=== PATIENT | female | born 1980 | race Hispanic/Latino ===

== ENCOUNTER 2017-11-21 07:34 | Day surgery (SDC) | payer OTHER ==
--- NOTE | 2017-11-20 16:29 | RAD REPORT ---
EXAM DESCRIPTION: RAD - Chest Pa And Lat (2 Views) - 11/20/2017 4:13 pm CLINICAL HISTORY: Preop chest, pending hernia repair COMPARISON: September 05 TECHNIQUE: PA and lateral views of the chest were obtained. FINDINGS: The lungs are no peripheral mass, consolidation or failure finding. Interstitial markings are prominent but not clearly different from the comparison 15 months earlier. Heart size is normal and central vasculature is within normal limits. No pleural effusion or pneumothorax seen. No acut e bony finding noted. No aortic abnormality. IMPRESSION: No acute cardiopulmonary process. No significant interval change.
[2017-11-20 17:18] LABS: Absolute Lymphocytes (CBC) 2.4 K/uL (0.7-4.9); Absolute Monocytes 0.5 K/uL (0.1-1.3); Absolute Neutrophil 5.8 K/uL (1.8-8.0); Basophils % 0.4 % (0-1.3); Eosinophils % 1.4 % (0-4.4); Hematocrit 40.4 % (36.0-45.0); MCH 30.9 pg (27.0-35.0); MCV 90.7 fL (80-100); MPV 9.5 fL (7.6-11.3); Monocytes % 5.8 % (3.3-12.3); RBC Red Blood Cell Count 4.46 M/uL (3.86-4.86)
[2017-11-20 17:32] LABS: BUN Blood Urea Nitrogen 11 mg/dL (6-20); Bicarbonate 25 mEq/L (21-31); Glucose Level 94 mg/dL (65-120); Potassium 4.1 mEq/L (3.6-5.0); Sodium Level 136 mEq/L (135-145)
--- NOTE | 2017-11-21 06:34 | EKG ---
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
--- OUTSIDE RECORDS SUMMARY | 2017-11-21 07:38 | XMS REPORT | Clinical Summary ---
:1980 Author Organization [facility] Address [address] [place] [id number] Care Team Providers Name Role Phone Arias Murillo MD Primary Care Provider Allergies No Known Allergies Current Medications Prescription Sig. Disp. Refills Start Date End Date Status MULTIVITAMIN ORAL Take 2 tablets by mouth Active daily. Alive Multivitamin Active Problems Problem Noted Date Left upper quadrant pain 07/14/2017 Last Assessment & Plan: The patient's abdominal pain and bloating does not seem to be from a small fat-containing ventral incisional hernia. This may be due to constipation, or possibly gastroparesis. I will obtain a hemoglobin A1c level as well as a gastric emptying study. The patient will also be referred to gastroenterology for further evaluation prior to any hernia repair. I will also obtain the patient's endoscopy records from Dr. Foley and [place], [place]. Generalized abdominal pain 06/11/2017 Last Assessment & Plan: The patient has generalized abdominal pain. It is unclear if the small ventral incisional hernia is the etiology for her pain. I will obtain her outside imaging from [facility] at [phone]. I will also obtain a recent CT scan of her abdomen and pelvis with by mouth and IV contrast. I will call the patient after the above studies are reviewed. Ventral incisional hernia 06/11/2017 Last Assessment & Plan: The patient has a small ventral incisional hernia at her subxiphoid port site, which is reducible. It is unclear if this is the cause for the patient's general abdominal pain. The patient's chronic constipation may be a contributing factor. The patient may also have a component of a partial small bowel obstruction from previous surgeries. I will review her outside imaging and obtain a new CT scan of her abdomen and pelvis with by mouth and IV contrast. Encounters Date Type Specialty Care Team Description 11/12/2017 Documentation General Surgery Iliana Darden MA Follow up 11/07/2017 Telephone General Surgery Dashawn Santiago MD 09/19/2017 Telephone General Surgery Dashawn Santiago MD 07/20/2017 Telephone General Surgery Amy Razo PA 07/13/2017 Hospital Encounter Radiology Dashawn Santiago MD Abdominal pain, unspecified abdominal location 07/13/2017 Telephone General Surgery Dashawn Santiago MD 07/12/2017 Office Visit General Surgery Dashawn Santiago MD Left upper quadrant pain (Primary Dx) 07/12/2017 Orders Only General Surgery Giuliana Evans MA Abdominal pain, unspecified abdominal location (Primary Dx) 06/20/2017 Hospital Encounter Radiology Dashawn Santiago MD 06/20/2017 Procedure Pass Radiology 06/20/2017 Ancillary Orders Radiology Dashawn Santiago MD 06/07/2017 Office Visit General Surgery Dashawn Santiago MD Generalized abdominal pain (Primary Dx); Ventral incisional hernia 06/07/2017 Orders Only General Surgery Giuliana Evans MA Ventral hernia without obstruction or gangrene (Primary Dx); Abdominal pain, unspecified abdominal location after 11/20/2016 Family History Medical History Relation Name Comments Hernia Brother Hernia Brother Ulcerative colitis Brother Ulcers Brother No Known Problems Daughter Diabetes Father Hyperlipidemia Father Other Father prostate problems, kidney infections No Known Problems Maternal Grandfather Stomach cancer Maternal Grandmother Hyperlipidemia Mother Hypertension Mother No Known Problems Paternal Grandfather Breast cancer Paternal Grandmother Diabetes Sister Fibroids Sister No Known Problems Son No Known Problems Son No Known Problems Son Relation Name Status Comments Brother Alive Brother Alive Brother Alive Daughter Alive Father Alive Maternal Grandfather Maternal Grandmother Mother Alive Paternal Grandfather Paternal Grandmother Sister Alive Son Alive Son Alive Son Alive Social History Tobacco Use Types Packs/Day Years Used Date Never Smoker Smokeless Tobacco: Never Used Alcohol Use Drinks/Week oz/Week Comments No Sex Assigned at Date Recorded Not on file Last Filed Vital Signs Vital Sign Reading Time Taken Blood Pressure 138/80 07/12/2017 9:37 AM [facility] Pulse 82 07/12/2017 9:37 AM [facility] Temperature 36.6 C (97.8 F) 07/12/2017 9:37 AM [facility] Respiratory Rate 16 07/12/2017 9:37 AM [facility] Oxygen Saturation - - Inhaled Oxygen Concentration - - Weight 78.7 kg (173 lb 8 oz) 07/12/2017 9:37 AM [facility] Height 160 cm (5' 3") 07/12/2017 9:37 AM [facility] Body Mass Index 30.73 07/12/2017 9:37 AM [facility] Plan of Treatment Health Maintenance Due Date Last Done Comments PAP SMEAR 1999 INFLUENZA VACCINE 02/06/2018 Results NM Gastric Emptying (07/13/2017 1:57 PM) Specimen Performing Laboratory [facility] [address] [place] [address] Narrative PROCEDURE:NM GASTRIC EMPTYING INDICATION:Abdominal pain. TECHNIQUE: 0.5 mCi of Tc-99m sulfur colloid was mixed with an egg and cooked. The egg was fed to the patient and dynamic planar images of the abdomen were acquired for 90 minutes.Delayed images were obtained at 4 hours. FINDINGS:The 90 minute gastric emptying rate is normal.The half-time of emptying is 63 minutes.Normal range is between 45 and 100 minutes. Delayed images demonstrate complete gastric emptying. IMPRESSION: 1.Normal gastric emptying rate. [facility]-[id number] Procedure Note Interface, Radiology Results [facility] - 07/13/2017 2:47 PM [facility] PROCEDURE: NM GASTRIC EMPTYING INDICATION: Abdominal pain. TECHNIQUE: 0.5 mCi of Tc-99m sulfur colloid was mixed with an egg and cooked. The egg was fed to the patient and dynamic planar images of the abdomen were acquired for 90 minutes. Delayed images were obtained at 4 hours. FINDINGS: The 90 minute gastric emptying rate is normal. The half-time of emptying is 63 minutes. Normal range is between 45 and 100 minutes. Delayed images demonstrate complete gastric emptying. IMPRESSION: 1. Normal gastric emptying rate. [facility]-[id number] CT Abdomen Pelvis W Contrast (06/13/2017 9:56 AM) Specimen Performing Laboratory [facility] [address] [place] [address] Narrative EXAMINATION:CT ABDOMEN PELVIS W CONTRAST CLINICAL HISTORY:Ventral hernia without obstruction or gangrene, Abdominal Pain TECHNIQUE: Multiple axial images of the abdomen and pelvis were obtained following intravenous administration of iodinated contrast. Sagittal and coronal computerized reformatted images were also obtained. Approximately 75 cc of Omnipaque [address] scan performed using radiation dose reduction techniques. Technical factors are evaluated and adjusted to ensure appropriate moderation of exposure. Automated dose management technology is applied to adjust the radiation dose to minimize expose whileachieving a diagnostic quality image. COMPARISON:None. FINDINGS: Abdominal wall: An approximately 2.8 cm supraumbilical ventral hernia with fat is seen. The hernia is approximately 9 cm above the umbilicus. No other ventral hernia is seen. Lung bases: The lung bases are clear. The visualized portion of the heart and thoracic aorta are unremarkable. Liver: Fatty infiltration of the liver is seen. An approximately 1.2 x 1.2 x 1.5 cm subcapsular hyperdensity is seen within the dome of the left lobe of the liver, series 2 image #25 and series 301B image #21.. No other hepatic lesion is seen. The liver is normal in caliber and contour. Gallbladder: Surgically absent.. Pancreas: The pancreas is normal in caliber and attenuation. No inflammatory process. The pancreatic duct is within normal limits. Spleen: The spleen is normal in appearance.. Kidneys and ureters: The kidneys function symmetrically. There is no enhancing renal lesion. No hydronephrosis or renal stone. The ureters are normal in course and caliber. Adrenal glands: Unremarkable. GI tract: The small bowel is normal in course and caliber. The left colon is contracted. The colon is otherwise unremarkable. No bowel wall thickening is identified. There is no acute inflammatory process. The appendix is normal. No right lower quadrant inflammation is seen. Ascites: None. Pelvis: The urinary bladder is within normal limits. The uterus is surgically absent.. Bones: Unremarkable. Retroperitoneum: No retroperitoneal or mesenteric lymphadenopathy is seen. No aortic aneurysm is seen. The visceral and mesenteric vascular branches are patent. IMPRESSION: Small supraumbilical hernia with fat. Approximately 1.2 x 1.2 x 1.5 cm subcapsular hyperdensity along the dome of the left lobe of the liver. Differential diagnoses including focal fatty sparing, adenoma versus hemangioma. CT or MRI of the abdomen with hemangioma protocol would be of use for clarification. Unremarkable exam otherwise. [facility] [id number] Procedure Note Hm Interface, Radiology Results Incoming - 06/13/2017 10:40 AM [facility] EXAMINATION: CT ABDOMEN PELVIS W CONTRAST CLINICAL HISTORY: Ventral hernia without obstruction or gangrene, Abdominal Pain TECHNIQUE: Multiple axial images of the abdomen and pelvis were obtained following intravenous administration of iodinated contrast. Sagittal and coronal computerized reformatted images were also obtained. Approximately 75 cc of Omnipaque [address] scan performed using radiation dose reduction techniques. Technical factors are evaluated and adjusted to ensure appropriate moderation of exposure. Automated dose management technology is applied to adjust the radiation dose to minimize expose while achieving a diagnostic quality image. COMPARISON: None. FINDINGS: Abdominal wall: An approximately 2.8 cm supraumbilical ventral hernia with fat is seen. The hernia is approximately 9 cm above the umbilicus. No other ventral hernia is seen. Lung bases: The lung bases are clear. The visualized portion of the heart and thoracic aorta are unremarkable. Liver: Fatty infiltration of the liver is seen. An approximately 1.2 x 1.2 x 1.5 cm subcapsular hyperdensity is seen within the dome of the left lobe of the liver, series 2 image #25 and series 301B image #21.. No other hepatic lesion is seen. The liver is normal in caliber and contour. Gallbladder: Surgically absent.. Pancreas: The pancreas is normal in caliber and attenuation. No inflammatory process. The pancreatic duct is within normal limits. Spleen: The spleen is normal in appearance.. Kidneys and ureters: The kidneys function symmetrically. There is no enhancing renal lesion. No hydronephrosis or renal stone. The ureters are normal in course and caliber. Adrenal glands: Unremarkable. GI tract: The small bowel is normal in course and caliber. The left colon is contracted. The colon is otherwise unremarkable. No bowel wall thickening is identified. There is no acute inflammatory process. The appendix is normal. No right lower quadrant inflammation is seen. Ascites: None. Pelvis: The urinary bladder is within normal limits. The uterus is surgically absent.. Bones: Unremarkable. Retroperitoneum: No retroperitoneal or mesenteric lymphadenopathy is seen. No aortic aneurysm is seen. The visceral and mesenteric vascular branches are patent. IMPRESSION: Small supraumbilical hernia with fat. Approximately 1.2 x 1.2 x 1.5 cm subcapsular hyperdensity along the dome of the left lobe of the liver. Differential diagnoses including focal fatty sparing , adenoma versus hemangioma. CT or MRI of the abdomen with hemangioma protocol would be of use for clarification. Unremarkable exam otherwise. [id number] after 11/20/2016 Insurance Payer Benefit Plan / Group Subscriber ID Type Phone Address AZIZA ERVIN OPEN ACCESS/NETWORK xxxxxxxxxxx O
[2017-11-21] MEDS ORDERED: Ringers Lactate 1,000 ML IV ONE (08:16)
[2017-11-21] MEDS ORDERED: CEFAZOLIN/SWI 1gm 1 GM/10 ML SYR ONE (08:42)
[2017-11-21] MEDS ORDERED: BUPIVACAINE 0.5% PF 10 ML VIAL ONE (08:51)
[2017-11-21] MEDS ORDERED: FENTANYL CITR 100 MCG/2 ML ONE ×2 (09:00→09:51)
[2017-11-21] MEDS ORDERED: LIDOCAINE 2% MPF 5 ML VIAL ONE (09:00)
[2017-11-21] MEDS ORDERED: PROPOFOL 200 MG/20 ML VIAL IV ONE (09:00)
[2017-11-21] MEDS ORDERED: MIDAZOLAM HCL 2 MG/2 ML INJ ONE (09:00)
[2017-11-21] MEDS ORDERED: ROCURONIUM 50 MG/5 ML VIAL IV ONE (09:33)
[2017-11-21] MEDS ORDERED: KETOROLAC 30 MG/ML INJ ONE (10:08)
[2017-11-21] MEDS ORDERED: GLYCOPYRROLATE 0.2 MG/ML SYR ONE ×2 (10:08→10:10)
[2017-11-21] MEDS ORDERED: NEOSTIGMINE 1 MG/ML -5 ML SYRINGE ONE (10:10)
--- NOTE | 2017-11-21 10:13 | P.BOP ---
Preoperative diagnosis: incisional incarcerated ventral hernia Postoperative diagnosis: same Primary procedure: Open repair of incisional incarcerated ventral hernia Wharf Tally Clerk: SAMANTHA BORJA Estimated blood loss: <5cc Specimen: henia sac Findings: incarcerated omentum Anesthesia: General Complications: None Transferred to: Recovery Room Condition: Good
[2017-11-21] MEDS ORDERED: MEPERIDINE HCL 25 MG/0.5 ML ONE (10:43)
[2017-11-21] MEDS ORDERED: ONDANSETRON 4 MG/2 ML VIAL ONE ×2 (11:00→11:41)
[2017-11-21] MEDS ORDERED: PROMETHAZINE 25 MG/ML VIAL ONE (12:26)
[2017-11-21] MEDS ORDERED: METOCLOPRAMIDE 10 MG/2mL INJ ONE (12:26)
[2017-11-21] MEDS ORDERED: CODEINE 30MG/APAP 300MG TAB ONE (13:38)
--- NOTE | 2017-11-21 22:05 | OP ---
Date of Procedure: 11/21/2017 Surgeon: Darrell Garland MD Preoperative Diagnosis: Morbid obesity, incisional incarcerated tender ventral hernia. Postoperative Diagnosis: Morbid obesity, incisional incarcerated tender ventral hernia. Procedure: Open repair of an incarcerated incisional ventral hernia. Anesthesia: General plus local. Findings: The patient has incarcerated omentum through a ventral hernia. Indications: This is the case of a 37-year-old patient, who comes to us with the above diagnosis. Kan byrd explained the benefits, alternatives, and risks of hernia repair, which include, but not limited to infection, bleeding, damage to adjacent structures, anesthesia complication, recurrence, PA, and even . She also understands this may not relieve any symptoms. She might need more than one lantigua rgical intervention. She understands the pros and cons of mesh placement in case we need to use that . She also understands the importance of no heavy lifting and specifically losing weight since the p atient is morbidly obese to diminish the chance of recurrence. She understood and signed a consent. The area of concern was marked by me and the patient in the holding room. Description Of Procedure: The patient was brought to the operating room, placed in supine position. Anesthesia was done without complication. Abdominal area was prepped and draped in a sterile fashio n. A time-out was called. An incision was made over the ventral region. Incision was carried down to fascia. We noticed a hernia. Carefully, the hernia sac was opened noticing her incarcerated omen shantanu. After release of some adhesions from the hernia sac, the omentum was reduced back into the abdo bridget cavity. It is viable. The hernia sac was removed. The fascial edges were cleaned and the def ects are closed without resistance, so we proceeded to close this with a [id number] fashion #1 P rolene multiple times. The area was irrigated. Subcutaneous tissue closed with 3-0 chromic and skin in a subcuticular fashion with Steri-Strips on top. Sponge count and instrument counts were correct . The patient tolerated the procedure well. The patient was sent to recovery in stable condition. GEN/VALDEZ Voice ID: [id number] Report ID: [id number]
--- NOTE | 2017-11-21 22:10 | DS ---
Date of Discharge: 11/21/2017 Diagnosis: Incarcerated incisional tender ventral hernia. Procedure: Open repair of an incisional incarcerated ventral hernia. Disposition: Home. Activity: As tolerated. No heavy lifting. Followup: Follow up in my office in 1 week. Call for appointment on [phone]. Keep the area dry fo r 48 hours, then may shower. Keep Steri-Strips intact. The patient was advised to use abdominal bin dena and may remove it when she take a shower. Medications: Include Tylenol No.3 q.4 hours p.r.n. pain, Bactrim DS p.o. b.i.d. GEN/VALDEZ Voice ID: [id number] Report ID: [id number]
== END 2017-11-21 14:37 | disposition home or self-care (01) ==
LOC: OR 07:34
PROVIDERS: ATTEND Surgery
PROC: 0WQF0ZZ Repair Abdominal Wall, Open Approach (ICD-10-PCS; principal; 2017-11-21 09:15)
DX: K43.0 Incisional hernia with obstruction, without gangrene (principal)
CPT/HCPCS: 36415; 71046; 80048; 85025; 88302; 88304; 93005; J0690; J2175; J2250; J2405; J2550; J2710; J2765; J3010

== ENCOUNTER 2019-05-28 09:29 | Emergency (ER) | payer OTHER ==
--- OUTSIDE RECORDS SUMMARY | 2019-05-28 09:32 | XMS REPORT ---
:1980 [facility] Address [address] [place] [address] Care Team Providers Name Role Phone Unavailable Unavailable Unavailable Payers Payer Name Policy Type Policy Number Effective Date Expiration Date Problems This patient has no known problems. Allergies, Adverse Reactions, Alerts Allergy Name Allergy Status Severity Reaction(s) Onset Inactive Treating Comments Type Date Date Clinician latex DA Active SV 2018- 8- 00:00: 00 No Known DA Active U Intolerances 4- 00:00: 00 latex DA Active SV 10-07 00:00: 00 No Known DA Active U 2008-07 Intolerances 0-08 00:00: 00 Medications This patient has no known medications. Results Test Description Test Time Test Comments Text Results Atomic Results Result Comments CBC W/AUTO DIFF 2019-02-21 05:11:00 Test Item Value Reference Range Comments WHITE BLOOD CELL (test code=WBC) 11.1 K/mm3 6.6-12.1 RED BLOOD CELL (test code=RBC) 3.71 M/mm3 3.45-5.01 HEMOGLOBIN (test code=HGB) 11.3 g/dL 10.7-13.9 HEMATOCRIT (test code=HCT) 35.3 % 32.1-42.1 MEAN CELL VOLUME (test code=MCV) 95 fL 84.1-94.8 MEAN CELL HGB (test code=MCH) 30.5 pg 27-35 MEAN CELL HGB CONCETRATION (test code=MCHC) 32.0 gm/dL 32.2-34.1 RED CELL DISTRIBUTION WIDTH (test code=RDW) 12.7 % 12.4-16.5 PLATELET COUNT (test code=PLT) 191 K/mm3 133-385 IMMATURE PLATELET FRACTION (test code=IPF) 0.0 % 0.0-10.8 MEAN PLATELET VOLUME (test code=MPV) 11.4 fl 9.1-12.7 NEUTROPHIL % (test code=NT%) 56.1 % 56.5-79.4 LYMPHOCYTE % (test code=LY%) 36.2 % 14.3-34.3 MONOCYTE % (test code=MO%) 5.9 % 5.1-10.4 EOSINOPHIL % (test code=EO%) 0.8 % 0.1-3.0 BASOPHIL % (test code=BA%) 0.2 % 0.1-1.0 NEUTROPHIL # (test code=NT#) 6.2 K/mm3 LYMPHOCYTE # (test code=LY#) 4.0 K/mm3 MONOCYTE # (test code=MO#) 0.7 K/mm3 EOSINOPHIL # (test code=EO#) 0.09 K/mm3 BASOPHIL # (test code=BA#) 0.0 K/mm3 RBC MORPHOLOGY REQUIRED (test code=RBCM) NORMAL NORMAL PLATELET MORPHOLOGY REQUIRED (test code=PLTMR) NORMAL NORMAL PERITONEUM,[id number] 07:45:00 RUN DATE: 02/20/19 [facility] PAGE 1 RUN TIME: 945 Specimen Inquiry RUN USER: INTERFACE PATIENT: TETO CAMPOS [facility] #: [id number] AGE/SX: 39/F ROOM: [facility] RE02/18/19REG DR: Sunil Isabel MD : 76 BED: A DIS: STATUS: ADM IN TLOC: SPEC #: [id number] RECD: 02/18/19 STATUS: SOUMallika REQ # : [id number] REI: 02/18/19- SUBM DR: Sunil Isabel MD ENTERED: 02/18/19 SP TYPE: PERITBX OTHR DR: ORDERED: LEVEL IV/10 CODES : [id number] - PERITONEUM, NOS PROCEDURES: LEVEL IV (Incomplete) TISSUES: PERITONEUM, NOS - PERITONEUM X 10 CLINICAL HISTORY 39 year old, endometriosis (wpd) FINAL DIAGNOSIS Left ovary with adhesions, oophorectomy: - fibrous ovarian serosal adhesions Right round ligament remnant, excision: - fibromuscular tissue with fibrosis Right sidewall / periureteral / uterosacral ligament / posterior culdesac / perirectal peritoneum with endometriosis, excision: - focal fibrosis and changes suggestive of endometriosis Left iliac vessel lesion / left sidewall / periureteral / uterosacral ligament / posterior culdesac / perirectal peritoneum with endometriosis, excision: - endosalpingiosis - focal fibrosis Sigmoid mesentery lesion, excision: - mesothelial lined adipose tissue with focal fibrosis Rectal mesentery, excision: - fibroadipose tissue with focal fibrosis Posterior vaginal cuff / mid posterior culdesac / perirectal peritoneum, excision: - peritoneum and adipose tissue with focal fibrosis Rectal endo nodule #1, excision: - hyalinized nodule consistent with previous ablation Rectal endo nodule #2, excision: - smooth muscle with focal fibrosis CONTINUED ON NEXT PAGE RUN DATE: 02/20/19 [facility] PAGE 2 RUN TIME: 945 Specimen Inquiry RUN USER: INTERFACE SPEC #: [id number] PATIENT: TETO CAMPOS #[id number] (Continued) FINAL DIAGNOSIS ( Continued) Appendix, appendectomy: - appendix, no significant pathologic alteration CPT code(s): 46538 x9, 40034 [facility] 02/19/19 GROSS DESCRIPTION ANATOMIC SOURCE OF TISSUE (per Requisition): 1. Left ovary with adhesions 2. Right round ligament remnant 3. Right sidewall / periureteral / uterosacral ligament / posterior culdesac / perirectal peritoneum with endo 4. Left iliac vessel lesion / left sidewall / periureteral / uterosacral ligament / posterior culdesac / perirectal peritoneum with endo 5. Sigmoid mesentery lesion, rule out endo 6. Rectal mesentery, rule out endo 7. Posterior vaginal cuff / mid posterior culdesac / perirectal peritoneum, rule out endo 8. Rectal endo nodule #1 9. Rectal endo nodule #2 10. Appendix Each specimen is labeled with the patient's name and medical record number. Specimen #1 is designated "left ovary with adhesions" and consistsof a 1.6 x 1.5 x 0.6 cm ovary with attached velarde-yellow tissue. Dividing Machine Operator Helper sections are submitted in A1. Specimen #2 is designated "right round ligament remnant" and consists of a 1.2 cm velarde tissue and is submitted in B1. Specimen #3 is designated "right sidewall / periureteral /uterosacral ligament / posterior culdesac / perirectal peritoneum with endo" and consists of a 6 x3.2 x 0.5 cm red-velarde peritoneum with underlying yellow tissue. Dividing Machine Operator Helper sections are submitted in C1. Specimen #4 is designated "left iliac vessel lesion / left sidewall / periureteral/ uterosacral ligament / posterior culdesac / perirectal peritoneum with endo" and consists of a7 x 4 x 1.0 cm red peritoneum with underlying yellow tissue. Dividing Machine Operator Helper sections are submitted in D1. Specimen #5 is designated "sigmoid mesentery lesion, rule out endo" and consists of a 2.5 x 1.0 x 0.3 cm red peritoneum with underlying yellow tissue. It is sectioned and submitted in toto in E1. Specimen #6 is designated "rectal mesentery, rule out endo" and consists of a 1.1cm CONTINUED ON NEXT PAGE RUN DATE: 02/20/19 [facility] PAGE 3 RUN TIME: 945 Specimen Inquiry RUN USER: INTERFACE SPEC #: [id number] PATIENT: TETO CAMPOS #[id number] (Continued) GROSS DESCRIPTION (Continued) yellow tissue and is submitted in F1. Specimen #7 is designated "posterior vaginal cuff / mid posterior culdesac / perirectal peritoneum, rule out endo" and consists of a 5 x 2 x 0.6 cm velarde peritoneum with underlying yellow tissue. It is sectioned and submitted in totoin G1. Specimen #8 is designated "rectal endo nodule #1" and consists of a 0.1 cm velarde, firm tissue and is submitted in H1. Specimen #9 is designated " rectal endo nodule #2" and consistsof a 0.3 cm velarde, firm tissue and is submitted in I1. Specimen #10 is designated "appendix" and consists of a segment of 4 x 0.6 x 0.6 cm vermiform appendix with an unremarkable 4 x 1.5 x 1.0 cm yellow mesoappendix attached. The serosal surface contains red fibrous adhesions. The appendiceal lumen contains red soft material. The entire appendix is submitted in J1 and J2. hz/wpd 02/18/19 @ 1650 -- Signed Esther Askew MD 02/20/19 0745 END OF REPORT CBC W/AUTO [id number] 04:58:00 Test Item Value Reference Range Comments WHITE BLOOD CELL (test code=WBC) 18.6 K/mm3 6.6-12.1 RED BLOOD CELL (test code=RBC) 3.74 M/mm3 3.45-5.01 HEMOGLOBIN (test code=HGB) 11.7 g/dL 10.7-13.9 HEMATOCRIT (test code=HCT) 35.2 % 32.1-42.1 MEAN CELL VOLUME (test code=MCV) 94 fL 84.1-94.8 MEAN CELL HGB (test code=MCH) 31.3 pg 27-35 MEAN CELL HGB CONCETRATION (test code=MCHC) 33.2 gm/dL 32.2-34.1 RED CELL DISTRIBUTION WIDTH (test code=RDW) 13.0 % 12.4-16.5 PLATELET COUNT (test code=PLT) 211 K/mm3 133-385 IMMATURE PLATELET FRACTION (test code=IPF) 0.0 % 0.0-10.8 MEAN PLATELET VOLUME (test code=MPV) 10.8 fl 9.1-12.7 NEUTROPHIL % (test code=NT%) 85.5 % 56.5-79.4 LYMPHOCYTE % (test code=LY%) 8.9 % 14.3-34.3 MONOCYTE % (test code=MO%) 4.7 % 5.1-10.4 EOSINOPHIL % (test code=EO%) 0.0 % 0.1-3.0 BASOPHIL % (test code=BA%) 0.1 % 0.1-1.0 NEUTROPHIL # (test code=NT#) 15.9 K/mm3 LYMPHOCYTE # (test code=LY#) 1.7 K/mm3 MONOCYTE # (test code=MO#) 0.9 K/mm3 EOSINOPHIL # (test code=EO#) 0 K/mm3 BASOPHIL # (test code=BA#) 0.0 K/mm3 RBC MORPHOLOGY REQUIRED (test code=RBCM) NORMAL NORMAL PLATELET MORPHOLOGY REQUIRED (test code=PLTMR) NORMAL NORMAL CBC W/AUTO [id number] 06:07:00 Test Item Value Reference Range Comments WHITE BLOOD CELL (test code=WBC) 15.0 K/mm3 6.6-12.1 RED BLOOD CELL (test code=RBC) 4.13 M/mm3 3.45-5.01 HEMOGLOBIN (test code=HGB) 12.7 g/dL 10.7-13.9 HEMATOCRIT (test code=HCT) 38.3 % 32.1-42.1 MEAN CELL VOLUME (test code=MCV) 93 fL 84.1-94.8 MEAN CELL HGB (test code=MCH) 30.8 pg 27-35 MEAN CELL HGB CONCETRATION (test code=MCHC) 33.2 gm/dL 32.2-34.1 RED CELL DISTRIBUTION WIDTH (test code=RDW) 12.4 % 12.4-16.5 PLATELET COUNT (test code=PLT) 246 K/mm3 133-385 IMMATURE PLATELET FRACTION (test code=IPF) 0.0 % 0.0-10.8 MEAN PLATELET VOLUME (test code=MPV) 11.1 fl 9.1-12.7 NEUTROPHIL % (test code=NT%) 91.9 % 56.5-79.4 LYMPHOCYTE % (test code=LY%) 7.0 % 14.3-34.3 MONOCYTE % (test code=MO%) 0.7 % 5.1-10.4 EOSINOPHIL % (test code=EO%) 0.0 % 0.1-3.0 BASOPHIL % (test code=BA%) 0.1 % 0.1-1.0 NEUTROPHIL # (test code=NT#) 13.8 K/mm3 LYMPHOCYTE # (test code=LY#) 1.1 K/mm3 MONOCYTE # (test code=MO#) 0.1 K/mm3 EOSINOPHIL # (test code=EO#) 0 K/mm3 BASOPHIL # (test code=BA#) 0.0 K/mm3 RBC MORPHOLOGY REQUIRED (test code=RBCM) NORMAL NORMAL PLATELET MORPHOLOGY REQUIRED (test code=PLTMR) NORMAL NORMAL COMPREHENSIVE METABOLIC [id number] 05:26:00 Test Item Value Reference Range Comments SODIUM (test code=NA) 139 mEq/L 135-145 POTASSIUM (test code=K) 4.2 mEq/L 3.5-5.0 CHLORIDE (test code=CL) 106 mEq/L 100-115 CARBON DIOXIDE (test code=CO2) 24 mEq/L 22-31 ANION GAP (test code=GAP) 13.70 10-20 GLUCOSE (test code=GLU) 209 mg/dL 65-110 BLOOD UREA NITROGEN (test code=BUN) 7 mg/dL 7-18 GLOMERULAR FILTRATION RATE (test code=GFR) 110 ml/min >60 CREATININE (test code=CREAT) 0.6 mg/dL 0.5-1.0 TOTAL PROTEIN (test code=PROT) 6.7 gm/dL 6.3-8.2 ALBUMIN (test code=ALB) 3.3 gm/dL 3.4-4.8 CALCIUM (test code=CA) 8.8 mg/dL 8.4-10.2 BILIRUBIN TOTAL (test code=BILT) 0.6 mg/dL 0.2-1.0 SGOT/AST (test code=AST) 44 units/L 15-37 SGPT/ALT (test code=ALT) 71 units/L 12-78 ALKALINE PHOSPHATASE TOTAL (test code=ALKP) 80 units/L 46-116 [id number] 05:26:00 Test Item Value Reference Range Comments MAGNESIUM (test code=MAG) 1.9 mg/dL 1.8-2.4 AG HEPATITIS B [id number] 15:34:00 Test Item Value Reference Range Comments AG HEPATITIS B SURFACE (test code=HBSAG) NONREACTIVE NONREACTIVE IS CONSENT FORM SIGNED FOR HIV TESTING? YAB HEPATITIS C [id number] 15:34: 00 Test Item Value Reference Range Comments AB HEPATITIS C (test code=HCVAB) NONREACTIVE NONREACTIVE SIGNAL TO CUTOFF (test code=CUTOFF) 0.04 <0.80 IS CONSENT FORM SIGNED FOR HIV TESTING? YAB HIV 1 15:34:00 Test Item Value Reference Range Comments AB HIV 1 2 (test NONREACTIVE NONREACTIVE Done by [employer] Curiouslyaur 4th code=BTH22SV) Gen HIV Ag/Ab Combo Screen IS CONSENT FORM SIGNED FOR HIV TESTING? YAG HEPATITIS B [id number] 15:12: 00 Test Item Value Reference Range Comments AG HEPATITIS B SURFACE (test code=HBSAG) NONREACTIVE NONREACTIVE IS CONSENT FORM SIGNED FOR HIV TESTING? YAB HEPATITIS C [id number] 15:12: 00 Test Item Value Reference Range Comments AB HEPATITIS C (test code=HCVAB) NONREACTIVE SIGNAL TO CUTOFF (test code=CUTOFF) <0.80 IS CONSENT FORM SIGNED FOR HIV TESTING? YAB HIV 1 [id number] 15:12:00 Test Item Value Reference Range Comments AB HIV 1 2 (test code=AGD24FV) NONREACTIVE IS CONSENT FORM SIGNED FOR HIV TESTING? YPROTHROMBIN [id number] 15:03:00 Test Item Value Reference Range Comments PROTHROMBIN TIME PATIENT (test code=PTP) 11.2 secs 10.4-12.4 THROMBOPLASTIN TIME [id number] 15:03:00 Test Item Value Reference Range Comments THROMBOPLASTIN TIME PARTIAL (test code=PTT) 33.6 secs 22-38 URINALYSIS [id number] 14:55:00 Test Item Value Reference Range Comments UA COLOR (test code=COLU) YELLOW YELLOW UA APPEARANCE (test code=APPU) CLEAR CLEAR UA GLUCOSE DIPSTICK (test code=DGLUU) NEGATIVE NEG UA BILIRUBIN DIPSTICK (test code=BILU) NEGATIVE NEG UA KETONE DIPSTICK (test code=KETU) NEGATIVE NEG UA SPECIFIC GRAVITY (test code=SGU) 1.010 1.001-1.035 UA BLOOD DIPSTICK (test code=JOHANNY) NEG NEG UA PH DIPSTICK (test code=CHOCO) 5.0 5-9 UA PROTEIN DIPSTICK (test code=PROU) NEGATIVE NEG UA UROBILINIOGEN DIPSTICK (test code=URO) NEGATIVE mg/dL NEG UA NITRITE DIPSTICK (test code=FÉLIX) NEG NEG UA LEUKOCYTE ESTERASE DIPSTICK (test NEG NEG code=LEUU) UA WBC (test code=WBCU) 0-2 #/hpf NONE SEEN UA RBC (test code=RBCU) 0-2 #/hpf NONE SEEN UA EPITHELIAL CELLS (test code=EPIU) RARE #/HPF RARE-FEW UA MUCUS (test code=MUCU) RARE NONE SEEN URINE SAMPLE: CLEAN CATCHCHEMISTRY 7 [id number] 14:46:00 Test Item Value Reference Range Comments SODIUM (test code=NA) 141 mEq/L 135-145 POTASSIUM (test code=K) 4.0 mEq/L 3.5-5.0 CHLORIDE (test code=CL) 101 mEq/L 100-115 CARBON DIOXIDE (test code=CO2) 28 mEq/L 22-31 ANION GAP (test code=GAP) 15.90 10-20 GLUCOSE (test code=GLU) 96 mg/dL 65-110 BLOOD UREA NITROGEN (test code=BUN) 8 mg/dL 7-18 GLOMERULAR FILTRATION RATE (test code=GFR) 110 ml/min >60 CREATININE (test code=CREAT) 0.6 mg/dL 0.5-1.0 CALCIUM (test code=CA) 8.9 mg/dL 8.4-10.2 LIVER [id number] 14:46:00 Test Item Value Reference Range Comments TOTAL PROTEIN (test code=PROT) 7.8 gm/dL 6.3-8.2 ALBUMIN (test code=ALB) 4.1 gm/dL 3.4-4.8 BILIRUBIN TOTAL (test code=BILT) 0.6 mg/dL 0.2-1.0 BILIRUBIN DIRECT (test code=BILD) 0.1 mg/dL <0.2 SGOT/AST (test code=AST) 55 units/L 15-37 SGPT/ALT (test code=ALT) 84 units/L 12-78 ALKALINE PHOSPHATASE TOTAL (test code=ALKP) 90 units/L 46-116 CBC W/AUTO [id number] 14:27:00 Test Item Value Reference Range Comments WHITE BLOOD CELL (test code=WBC) 8.3 K/mm3 6.6-12.1 RED BLOOD CELL (test code=RBC) 4.57 M/mm3 3.45-5.01 HEMOGLOBIN (test code=HGB) 14.0 g/dL 10.7-13.9 HEMATOCRIT (test code=HCT) 42.7 % 32.1-42.1 MEAN CELL VOLUME (test code=MCV) 93 fL 84.1-94.8 MEAN CELL HGB (test code=MCH) 30.6 pg 27-35 MEAN CELL HGB CONCETRATION (test code=MCHC) 32.8 gm/dL 32.2-34.1 RED CELL DISTRIBUTION WIDTH (test code=RDW) 12.7 % 12.4-16.5 PLATELET COUNT (test code=PLT) 252 K/mm3 133-385 IMMATURE PLATELET FRACTION (test code=IPF) 0.0 % 0.0-10.8 MEAN PLATELET VOLUME (test code=MPV) 11.2 fl 9.1-12.7 NEUTROPHIL % (test code=NT%) 65.1 % 56.5-79.4 LYMPHOCYTE % (test code=LY%) 27.0 % 14.3-34.3 MONOCYTE % (test code=MO%) 5.2 % 5.1-10.4 EOSINOPHIL % (test code=EO%) 1.9 % 0.1-3.0 BASOPHIL % (test code=BA%) 0.4 % 0.1-1.0 NEUTROPHIL # (test code=NT#) 5.4 K/mm3 LYMPHOCYTE # (test code=LY#) 2.3 K/mm3 MONOCYTE # (test code=MO#) 0.4 K/mm3 EOSINOPHIL # (test code=EO#) 0.16 K/mm3 BASOPHIL # (test code=BA#) 0.0 K/mm3 RBC MORPHOLOGY REQUIRED (test code=RBCM) NORMAL NORMAL PLATELET MORPHOLOGY REQUIRED (test code=PLTMR) NORMAL NORMAL - XR CHEST 2 [id number] 13:43:00 Patient Name: TETO CAMPOS Unit No: [id number] EXAMS: CPT CODE: [id number] XR CHEST 2 V 91687 CLINICAL HISTORY: PRE OP COMPARISON: NONE PA and lateral films of the chest demonstrate that heart size is normal. Prominent epicardial fat pad is present on the left side. Lung mims are clear. No evidence of pneumonia or congestive failure is seen. Regional skeletal structures demonstrate no acute abnormality. IMPRESSION: No evidence of pneumonia or congestive failure is seen. at 1343 Reported and signed by: Kameron Murguia MD CC: Sunil Ansari; Arias Murillo MD Technologist: RT Jonny Trnscrbd D / ([phone]) Jackie Orig Print D/T: S: 11/2018 (9154) [facility] PHYS: CLARISSE - Sunil Isabel MD [address] : 1980 AGE: 39 SEX: F [place], [place] [address] LOC: [place] PHONE #: [phone] EXAM DATE: 02/10/2019 STATUS: PRE IN FAX #: [phone] RAD NO: [id number] Page 1 Signed ReportSKIN,NOT CYST/TAG/DEBRID/[id number] 13:28:00 RUN DATE: 10/11/18 [facility] PAGE 1 RUN TIME: 1700 Specimen Inquiry RUN USER: INTERFACE PATIENT : TETO CAMPOS LOC: [facility] U #: [id number] AGE/SX: 38/F ROOM: RE10/10/18REG DR: Sunil Isabel MD : 76 BED: DIS: STATUS: [facility] TLOC: SPEC #: [id number] RECD: 10/10/18-1250 STATUS: EARNESTINE HELM #: [id number] REI: 10/10/18 - SUBM DR: Sunil Isabel MD ENTERED: 10/10/18-125 SP TYPE : SKINOTCTDP [facility] DR: ORDERED: LEVEL IV CODES: [id number] - SKIN, NOS PROCEDURES: LEVEL IV (Incomplete) TISSUES: SKIN, NOS - UMBILICAL KELOID SKIN SCAR CLINICAL HISTORY 38 year old, endometriosis (wpd) FINAL DIAGNOSIS Designated "umbilical keloid skin scar", excision: - skin with dermal fibrosis (scar ) Tissue code 1 CPT code(s): 20144 klaus/shaheen dt: 10/11/18 GROSS DESCRIPTION ANATOMIC SOURCE OF TISSUE (per Requisition): Umbilical keloid skin scar The specimen is received in a formalin-filled container, labeled with the patient's name and designated "umbilical keloid skin scar". The specimen consists of an ellipse of unoriented 1.3 x 0.3 cm dark, hairless skin with underlying off-white tissue measuring 1 cm. It is submitted in toto in A1. hz/wpd 10/10/18 @ 1700 MICROSCOPIC DESCRIPTION The specimen consists of a portion of skin with dermal fibrosis. klaus/shaheen dt: 10/11/18 Signed Luanne Diez 11/24 1328 END OF REPORT AG HEPATITIS B [id number] 15:45:00 Test Item Value Reference Range Comments AG HEPATITIS B SURFACE (test code=HBSAG) NONREACTIVE NONREACTIVE Comments to Pbx Supervisor: PRE-OPIS CONSENT FORM SIGNED FOR HIV TESTING? YAB HEPATITIS C [id number] 15:45:00 Test Item Value Reference Range Comments AB HEPATITIS C (test code=HCVAB) NONREACTIVE NONREACTIVE SIGNAL TO CUTOFF (test code=CUTOFF) 0.04 <0.80 Comments to Pbx Supervisor: PRE-OPIS CONSENT FORM SIGNED FOR HIV TESTING? YAB HIV 1 15:45:00 Test Item Value Reference Range Comments AB HIV 1 2 (test NONREACTIVE NONREACTIVE Done by Vib[employer] 4th code=EEL12MZ) Gen HIV Ag/Ab Combo Screen Comments to Pbx Supervisor: PRE-OPIS CONSENT FORM SIGNED FOR HIV TESTING? YCHEMISTRY 7 [id number] 14:50:00 Test Item Value Reference Range Comments SODIUM (test code=NA) 140 mEq/L 135-145 POTASSIUM (test code=K) 4.0 mEq/L 3.5-5.0 CHLORIDE (test code=CL) 104 mEq/L 100-115 CARBON DIOXIDE (test code=CO2) 26 mEq/L 22-31 ANION GAP (test code=GAP) 14.40 10-20 GLUCOSE (test code=GLU) 95 mg/dL 65-110 BLOOD UREA NITROGEN (test code=BUN) 7 mg/dL 7-18 GLOMERULAR FILTRATION RATE (test code=GFR) 93 ml/min >60 CREATININE (test code=CREAT) 0.7 mg/dL 0.5-1.0 CALCIUM (test code=CA) 9.3 mg/dL 8.4-10.2 LIVER [id number] 14:50:00 Test Item Value Reference Range Comments TOTAL PROTEIN (test code=PROT) 7.9 gm/dL 6.3-8.2 ALBUMIN (test code=ALB) 4.0 gm/dL 3.4-4.8 BILIRUBIN TOTAL (test code=BILT) 0.6 mg/dL 0.2-1.0 BILIRUBIN DIRECT (test code=BILD) 0.1 mg/dL <0.2 SGOT/AST (test code=AST) 20 units/L 15-37 SGPT/ALT (test code=ALT) 36 units/L 12-78 ALKALINE PHOSPHATASE TOTAL (test code=ALKP) 77 units/L 46-116 HCG SERUM [id number] 14:50:00 Test Item Value Reference Range Comments HCG SERUM QUAL (test code=HCGQL) NEGATIVE CHEMISTRY 7 [id number] 14:33:00 Test Item Value Reference Range Comments SODIUM (test code=NA) mEq/L 135-145 POTASSIUM (test code=K) mEq/L 3.5-5.0 CHLORIDE (test code=CL) mEq/L 100-115 CARBON DIOXIDE (test code=CO2) mEq/L 22-31 ANION GAP (test code=GAP) 10-20 GLUCOSE (test code=GLU) mg/dL 65-110 BLOOD UREA NITROGEN (test code=BUN) mg/dL 7-18 CREATININE (test code=CREAT) mg/dL 0.5-1.0 CALCIUM (test code=CA) mg/dL 8.4-10.2 LIVER [id number] 14:33:00 Test Item Value Reference Range Comments TOTAL PROTEIN (test code=PROT) gm/dL 6.3-8.2 ALBUMIN (test code=ALB) gm/dL 3.4-4.8 BILIRUBIN TOTAL (test code=BILT) mg/dL 0.2-1.0 BILIRUBIN DIRECT (test code=BILD) mg/dL <0.2 SGOT/AST (test code=AST) units/L 15-37 SGPT/ALT (test code=ALT) units/L 12-78 ALKALINE PHOSPHATASE TOTAL (test code=ALKP) units/L 46-116 HCG SERUM [id number] 14:33:00 Test Item Value Reference Range Comments HCG SERUM QUAL (test code=HCGQL) NEGATIVE PROTHROMBIN [id number] 14:31:00 Test Item Value Reference Range Comments PROTHROMBIN TIME PATIENT (test code=PTP) 11.4 secs 10.4-12.4 Comments to Pbx Supervisor: PRE-OPTHROMBOPLASTIN TIME [id number] 14:31:00 Test Item Value Reference Range Comments THROMBOPLASTIN TIME PARTIAL (test code=PTT) 33.2 secs 22-38 Comments to Pbx Supervisor: PRE-OPURINALYSIS [id number] 14:17:00 Test Item Value Reference Range Comments UA COLOR (test code=COLU) YELLOW YELLOW UA APPEARANCE (test code=APPU) CLEAR CLEAR UA GLUCOSE DIPSTICK (test code=DGLUU) NEGATIVE NEG UA BILIRUBIN DIPSTICK (test code=BILU) NEGATIVE NEG UA KETONE DIPSTICK (test code=KETU) NEGATIVE NEG UA SPECIFIC GRAVITY (test code=SGU) 1.013 1.001-1.035 UA BLOOD DIPSTICK (test code=JOHANNY) NEG NEG UA PH DIPSTICK (test code=CHOCO) 5.0 5-9 UA PROTEIN DIPSTICK (test code=PROU) NEGATIVE NEG UA UROBILINIOGEN DIPSTICK (test code=URO) NEGATIVE mg/dL NEG UA NITRITE DIPSTICK (test code=FÉLIX) NEG NEG UA LEUKOCYTE ESTERASE DIPSTICK (test NEG NEG code=LEUU) UA WBC (test code=WBCU) 0-2 #/hpf NONE SEEN UA RBC (test code=RBCU) 0-2 #/hpf NONE SEEN UA EPITHELIAL CELLS (test code=EPIU) RARE #/HPF RARE-FEW UA MUCUS (test code=MUCU) RARE NONE SEEN URINE SAMPLE: CLEAN CATCHCBC W/AUTO [id number] 13:56:00 Test Item Value Reference Range Comments WHITE BLOOD CELL (test code=WBC) 8.8 K/mm3 6.6-12.1 RED BLOOD CELL (test code=RBC) 4.48 M/mm3 3.45-5.01 HEMOGLOBIN (test code=HGB) 13.8 g/dL 10.7-13.9 HEMATOCRIT (test code=HCT) 41.9 % 32.1-42.1 MEAN CELL VOLUME (test code=MCV) 94 fL 84.1-94.8 MEAN CELL HGB (test code=MCH) 30.8 pg 27-35 MEAN CELL HGB CONCETRATION (test code=MCHC) 32.9 gm/dL 32.2-34.1 RED CELL DISTRIBUTION WIDTH (test code=RDW) 12.5 % 12.4-16.5 PLATELET COUNT (test code=PLT) 259 K/mm3 133-385 IMMATURE PLATELET FRACTION (test code=IPF) 0.0 % 0.0-10.8 MEAN PLATELET VOLUME (test code=MPV) 10.9 fl 9.1-12.7 NEUTROPHIL % (test code=NT%) 67.0 % 56.5-79.4 LYMPHOCYTE % (test code=LY%) 26.3 % 14.3-34.3 MONOCYTE % (test code=MO%) 4.8 % 5.1-10.4 EOSINOPHIL % (test code=EO%) 1.1 % 0.1-3.0 BASOPHIL % (test code=BA%) 0.5 % 0.1-1.0 NEUTROPHIL # (test code=NT#) 5.9 K/mm3 LYMPHOCYTE # (test code=LY#) 2.3 K/mm3 MONOCYTE # (test code=MO#) 0.4 K/mm3 EOSINOPHIL # (test code=EO#) 0.10 K/mm3 BASOPHIL # (test code=BA#) 0.0 K/mm3 RBC MORPHOLOGY REQUIRED (test code=RBCM) NORMAL NORMAL PLATELET MORPHOLOGY REQUIRED (test code=PLTMR) NORMAL NORMAL
[2019-05-28 11:15] LABS: C-Reactive Protein 10.1 mg/L (<3.00)
--- NOTE | 2019-05-28 12:52 | RAD REPORT ---
EXAM DESCRIPTION: US - Extremity Venous [facility] - 05/28/2019 12:44 pm CLINICAL HISTORY: PAIN Leg swelling and edema. COMPARISON: EXTREMITY NONVASCULAR dated 10/17/2013 FINDINGS: Right lower extremity venous system was interrogated with Doppler technique. Normal flow, compressibility and augmentation was noted. There is no DVT present. IMPRESSION: No evidence of right lower extremity deep venous thrombosis.
--- NOTE | 2019-05-28 13:12 | ER ---
Nurse's Notes [facility] Name: Ann Buckley Age: 39 yrs Sex: Female : 1980 Arrival Date: 05/28/2019 Time: 09:32 Bed 7 Private MD: Diagnosis: Pain in right leg Presentation: 05/28 09:46 Presenting complaint: Patient states: right thigh pain and swelling x 3 days, denies jl7 trauma. Transition of care: patient was not received from another setting of care. Onset of symptoms was May 25, 2019. Risk Assessment: Do you want to hurt yourself or someone else? Patient reports no desire to harm self or others. Initial Sepsis Screen: Does the patient meet any 2 criteria? No. Patient's initial sepsis screen is negative. Does the patient have a suspected source of infection? No. Patient's initial sepsis screen is negative. Care prior to arrival: None. 09:46 Method Of Arrival: Ambulatory jl7 09:46 Acuity: SILVIANO 3 ss Triage Assessment: 09:49 General: Appears in no apparent distress. uncomfortable, Behavior is calm, cooperative, jl7 appropriate for age. Pain: Complains of pain in lateral aspect of right thigh Pain currently is 6 out of 10 on a pain scale. Pain began 2-3 days ago. EENT: No signs and/or symptoms were reported regarding the EENT system. Neuro: Level of Consciousness is awake, alert, obeys commands, Oriented to person, place, time, situation. Cardiovascular: Patient's skin is warm and dry. Respiratory: Airway is patent Respiratory effort is even, unlabored, Respiratory pattern is regular, symmetrical. Derm: Skin is pink, warm \T\ dry. Musculoskeletal: Range of motion: limited in right knee Swelling present in right quadriceps and right knee. 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 - Social history:: Smoking status: Patient/guardian denies using tobacco. - Ebola Screening: : No symptoms or risks identified at this time. Screenin:56 Abuse screen: Denies threats or abuse. Denies injuries from another. Nutritional jl7 screening: No deficits noted. Tuberculosis screening: No symptoms or risk factors identified. 11:47 Fall Risk None identified. jl7 Assessment: 09:56 General: See triage assessment. jl7 11:00 Reassessment: Patient appears in no apparent distress at this time. No changes from jl7 previously documented assessment. Patient and/or family updated on plan of care and expected duration. Pain level reassessed. Patient is alert, oriented x 3, equal unlabored respirations, skin warm/dry/pink. 12:00 Reassessment: Patient appears in no apparent distress at this time. No changes from rb1 previously documented assessment. Patient and/or family updated on plan of care and expected duration. Pain level reassessed. Patient is alert, oriented x 3, equal unlabored respirations, skin warm/dry/pink. 13:00 Reassessment: Patient appears in no apparent distress at this time. No changes from rb1 previously documented assessment. Patient and/or family updated on plan of care and expected duration. Pain level reassessed. Patient is alert, oriented x 3, equal unlabored respirations, skin warm/dry/pink. Vital Signs: 09:49 BP 156 / 105; Pulse 83; Resp 16 S; Temp 98.3(O); Pulse Ox 97% on R/A; Weight 76.66 kg jl7 (R); Height 5 ft. 2 in. (157.48 cm) (R); Pain 6/10; 11:47 BP 114 / 74; Pulse 80; Resp 16 S; Pulse Ox 97% on R/A; jl7 13:03 BP 136 / 90; Pulse 71; Resp 18; Pulse Ox 97% on R/A; Pain 7/10; em1 09:49 Body Mass Index 30.91 (76.66 kg, 157.48 cm) jl7 ED Course: 09:32 Patient arrived in ED. as 09:41 Karla Coleman, DAHIANA is Primary Nurse. jl7 09:47 Triage completed. jl7 09:49 Arm band placed on right wrist. jl7 09:56 Patient has correct armband on for positive identification. Placed in gown. Bed in low jl7 position. Call light in reach. Side rails up X 1. Pulse ox on. NIBP on. 09:59 Arie Herrera PA is PHCP. jr8 09:59 Joseph Davis MD is Attending Physician. jr8 10:45 Initial lab(s) drawn, by me, sent to lab. Inserted saline lock: 20 gauge in left em1 antecubital area, using aseptic technique. Blood collected. 11:14 US Extremity Venous Unilateral Ltd In Process Unspecified. EDMS 13:31 No provider procedures requiring assistance completed. IV discontinued, intact, rb1 bleeding controlled, No redness/swelling at site. Pressure dressing applied. Administered Medications: No medications were administered Outcome: 13:11 Discharge ordered by MD. jr8 13:31 Discharged to home ambulatory. rb1 13:31 Condition: stable 13:31 Discharge instructions given to patient, family, Instructed on discharge instructions, follow up and referral plans. medication usage, Demonstrated understanding of instructions, follow-up care, medications, Prescriptions given X 1. 13:31 Patient left the ED. rb1 Signatures: Dispatcher [employer] EDIN Yumiko Garland Eric em1 Savannah Santos RN RN ss Arie Herrera PA PA jr8 Jailene Urrutia, RN RN rb1 Karla Coleman RN RN jl7 Corrections: (The following items were deleted from the chart) 13:10 09:46 Acuity: SILVIANO 4 jl7 ss
--- NOTE | 2019-05-28 13:12 | EDPHYS ---
Physician Documentation [facility] Name: Ann Buckley Age: 39 yrs Sex: Female : 1980 Arrival Date: 05/28/2019 Time: 09:32 Bed 7 Private MD: ED Physician Joseph Davis HPI: 05/28 11:01 This 39 yrs old Female presents to ER via Ambulatory with complaints of Leg jr8 Swelling. 11:01 The patient presents with decreased range of motion, pain, swelling, tenderness. The jr8 complaints affect the lateral aspect of right thigh. Onset: The symptoms/episode began/occurred gradually, 2 day(s) ago. Modifying factors: The symptoms are alleviated by nothing. the symptoms are aggravated by movement. Associated signs and symptoms: The patient has no apparent associated signs or symptoms. Severity of symptoms: At their worst the symptoms were mild, in the emergency department the symptoms are unchanged. The patient has not experienced similar symptoms in the past. The patient has been recently seen by a physician:. Patient stated that she recently had surgery to remove endometrial tissue and appendix. Stated that they put her on Estradiol patches as well. Had long trip not to long ago. A few days ago started to have right lateral leg pain. Denies trauma. Unknown why it hurts but not going away . 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 - Social history:: Smoking status: Patient/guardian denies using tobacco. - Ebola Screening: : No symptoms or risks identified at this time. ROS: 11:01 Eyes: Negative for injury, pain, redness, and discharge, ENT: Negative for injury, jr8 pain, and discharge, Neck: Negative for injury, pain, and swelling, Cardiovascular: Negative for chest pain, palpitations, and edema, Respiratory: Negative for shortness of breath, cough, wheezing, and pleuritic chest pain, Abdomen/GI: Negative for abdominal pain, nausea, vomiting, diarrhea, and constipation, Back: Negative for injury and pain, Skin: Negative for injury, rash, and discoloration, Neuro: Negative for headache, weakness, numbness, tingling, and seizure. 11:01 MS/extremity: Positive for decreased range of motion, pain, tenderness, of the lateral aspect of right thigh. Exam: 11: Eyes: Pupils equal round and reactive to light, extra-ocular motions intact. Lids and jr8 lashes normal. Conjunctiva and sclera are non-icteric and not injected. Cornea within normal limits. Periorbital areas with no swelling, redness, or edema. ENT: Nares patent. No nasal discharge, no septal abnormalities noted. Tympanic membranes are normal and external auditory canals are clear. Oropharynx with no redness, swelling, or masses, exudates, or evidence of obstruction, uvula midline. Mucous membranes moist. Neck: Trachea midline, no thyromegaly or masses palpated, and no cervical lymphadenopathy. Supple, full range of motion without nuchal rigidity, or vertebral point tenderness. No Meningismus. Cardiovascular: Regular rate and rhythm with a normal S1 and S2. No gallops, murmurs, or rubs. Normal PMI, no JVD. No pulse deficits. Respiratory: Lungs have equal breath sounds bilaterally, clear to auscultation and percussion. No rales, rhonchi or wheezes noted. No increased work of breathing, no retractions or nasal flaring. Abdomen/GI: Soft, non-tender, with normal bowel sounds. No distension or tympany. No guarding or rebound. No evidence of tenderness throughout. Back: No spinal tenderness. No costovertebral tenderness. Full range of motion. Skin: Warm, dry with normal turgor. Normal color with no rashes, no lesions, and no evidence of cellulitis. Neuro: Awake and alert, GCS 15, oriented to person, place, time, and situation. Cranial nerves II-XII grossly intact. Motor strength 5/5 in all extremities. Sensory grossly intact. Cerebellar exam normal. Normal gait. 11: Musculoskeletal/extremity: Extremities: grossly normal except: noted in the lateral aspect of right thigh: Patient has mild swelling and tenderness to lateral right thigh. No erythema or palpable cord present. No bruising or other trauma noted , ROM: Circulation is intact in all extremities. Pulses: noted to be 2+ in the right radial artery, right dorsalis pedis artery, left radial artery and left dorsalis pedis artery, Sensation intact. Vital Signs: 09:49 BP 156 / 105; Pulse 83; Resp 16 S; Temp 98.3(O); Pulse Ox 97% on R/A; Weight 76.66 kg jl7 (R); Height 5 ft. 2 in. (157.48 cm) (R); Pain 6/10; 11:47 BP 114 / 74; Pulse 80; Resp 16 S; Pulse Ox 97% on R/A; jl7 13:03 BP 136 / 90; Pulse 71; Resp 18; Pulse Ox 97% on R/A; Pain 7/10; em1 09:49 Body Mass Index 30.91 (76.66 kg, 157.48 cm) 7 MDM: 10:05 Patient medically screened. jr8 13:10 Data reviewed: vital signs, nurses notes, lab test result(s), radiologic studies, jr8 ultrasound. Data interpreted: Pulse oximetry: on room air is 97 %. Interpretation: normal. Counseling: I had a detailed discussion with the patient and/or guardian regarding: the historical points, exam findings, and any diagnostic results supporting the discharge/admit diagnosis, lab results, radiology results, the need for outpatient follow up, a family practitioner, to return to the emergency department if symptoms worsen or persist or if there are any questions or concerns that arise at home. ED course: No dvt. No ESR or CPK elevation. Mild CRP elevation. Will put on antiinflammatory to see how she does. If worse to come back . 05/28 10:19 Order name: CK; Complete Time: 11:05/28 10:19 Order name: ESR; Complete Time: 11:50 8 05/28 10:19 Order name: US Extremity Venous Unilateral Ltd; Complete Time: 13:10 jr8 05/28 10:19 Order name: SL; Complete Time: 10:44 8 05/28 10:19 Order name: CRP; Complete Time: :8 Administered Medications: No medications were administered Disposition: 17:51 Co-signature as Attending Physician, Joseph Davis MD. ma2 Disposition: 05/28/19 13:11 Discharged to Home. Impression: Pain in right leg. - Condition is Stable. - Discharge Instructions: Musculoskeletal Pain. - Prescriptions for meloxicam 15 mg Oral tablet - take 1 tablet by ORAL route once daily As needed; 20 tablet. - Medication Reconciliation Form, Thank You Letter, Antibiotic Education, Prescription Opioid Use form. - Follow up: Private Physician; When: 2 - 3 days; Reason: Recheck today's complaints, Continuance of care, Re-evaluation by your physician. - Problem is new. - Symptoms have improved. Signatures: Dispatcher [employer] EDMS Arie eHrrera PA PA jr8 Jailene Urrutia, RN RN rb1 Karla Coleman RN RN jl7 Joseph Davis MD MD ma2 Corrections: (The following items were deleted from the chart) 13:31 13:11 05/28/2019 13:11 Discharged to Home. Impression: Pain in right leg. Condition is rb1 Stable. Forms are Medication Reconciliation Form, Thank You Letter, Antibiotic Education, Prescription Opioid Use. Follow up: Private Physician; When: 2 - 3 days; Reason: Recheck today's complaints, Continuance of care, Re-evaluation by your physician. Problem is new. Symptoms have improved. jr8
[2019-05-28 13:51] VITALS: TEMP 98.3; O2SAT 97
[2019-05-28 13:53] VITALS: BP 136/90
== END 2019-05-28 13:31 | disposition home or self-care (01) ==
LOC: ER 09:29
DX: M79.604 Pain in right leg (principal)
CPT/HCPCS: 36415; 82550; 85652; 86140; 93971; 99284

== ENCOUNTER 2019-08-06 09:39 | Emergency (ER) | payer OTHER ==
--- OUTSIDE RECORDS SUMMARY | 2019-08-06 09:41 | XMS REPORT ---
:1980 [facility] Address [address] [place] [address] [address] [place] [address] Care Team Providers Name Role Phone Unavailable Unavailable Unavailable Payers Payer Name Policy Type Policy Number Effective Date Expiration Date Problems This patient has no known problems. Allergies, Adverse Reactions, Alerts Allergy Name Allergy Status Severity Reaction(s) Onset Inactive Treating Comments Type Date Date Clinician latex DA Active SV 02-18 00:00: 00 No Known DA Active U [...] PLATELET MORPHOLOGY REQUIRED (test code=PLTMR) NORMAL NORMAL PERITONEUM,[id number] 07:45:00 RUN DATE: 02/20/19 [facility] PAGE 1 RUN TIME: 945 Specimen Inquiry RUN USER: INTERFACE [id number] LOC: [place] U #: [id number] AGE/SX: 39/F ROOM: [facility] RE02/18/19REG DR: Sunil Isabel MD : [birth year] BED: A DIS: STATUS: ADM IN TLOC: SPEC #: [id number] RECD: 02/18/19 STATUS: EARNESTINE RE # : [id number] REI: 02/18/19- SUBM DR: Sunil Isabel MD ENTERED: 02/18/19 SP TYPE: PERITBX OTHR DR: ORDERED: LEVEL IV/10 CODES : [id number] - PERITONEUM, NOS PROCEDURES: LEVEL IV (Incomplete) [...] Specimen Inquiry RUN USER: INTERFACE SPEC #: [id number] PATIENT: TETO CAMPOS #[id number] (Continued) FINAL DIAGNOSIS ( Continued) Appendix, appendectomy: - appendix, no significant pathologic alteration CPT code(s): 67863 x9, 735[address] [facility] 02/19/19 GROSS DESCRIPTION [...] 0.6 cm ovary with attached velarde-yellow tissue. Junk Dealer sections are submitted in A1. Specimen #2 is designated "right round ligament remnant" and consists of a 1.2 cm velarde tissue and is submitted in B1. Specimen #3 is designated "right sidewall / periureteral /uterosacral ligament / posterior culdesac / perirectal peritoneum with endo" and consists of a 6 x3.2 x 0.5 cm red-velarde peritoneum with underlying yellow tissue. Junk Dealer sections are submitted in C1. Specimen #4 is designated "left iliac vessel lesion / left sidewall / periureteral/ uterosacral ligament / posterior culdesac / perirectal peritoneum with endo" and consists of a7 x 4 x 1.0 cm red peritoneum with underlying yellow tissue. Junk Dealer sections are submitted in D1. Specimen #5 [...] Specimen Inquiry RUN USER: INTERFACE SPEC #: [id number] PATIENT: TETO CAMPOS #[id number] (Continued) GROSS DESCRIPTION (Continued) yellow tissue and [...] in J1 and J2. hz/wpd 02/18/19 @ 1655 -- Signed Esther Askew MD 02/20/19 0745 END OF REPORT CBC W/AUTO [id number] 04:58:00 Test Item Value Reference Range Comments [...] REQUIRED (test code=PLTMR) NORMAL NORMAL CBC W/AUTO [id number] 06:07:00 Test Item Value Reference Range Comments [...] REQUIRED (test code=PLTMR) NORMAL NORMAL COMPREHENSIVE METABOLIC [id number] 05:26:00 Test Item Value Reference Range Comments [...] PHOSPHATASE TOTAL (test code=ALKP) 80 units/L 46-116 [id number] 05:26:00 Test Item Value Reference Range Comments MAGNESIUM (test code=MAG) 1.9 mg/dL 1.8-2.4 AG HEPATITIS B [id number] 15:34:00 Test Item Value Reference Range Comments AG HEPATITIS B SURFACE (test code=HBSAG) NONREACTIVE NONREACTIVE IS CONSENT FORM SIGNED FOR HIV TESTING? YAB HEPATITIS C [id number] 15:34: 00 Test Item Value Reference Range Comments AB HEPATITIS C (test code=HCVAB) NONREACTIVE NONREACTIVE SIGNAL TO CUTOFF (test code=CUTOFF) 0.04 <0.80 IS CONSENT FORM SIGNED FOR HIV TESTING? YAB HIV 1 15:34:00 Test Item Value Reference Range Comments AB HIV 1 2 (test NONREACTIVE NONREACTIVE Done by [employer] 4th code=EBF15DJ) Gen HIV Ag/Ab Combo Screen IS CONSENT FORM SIGNED FOR HIV TESTING? YAG HEPATITIS B [id number] 15:12: 00 Test Item Value Reference Range Comments AG HEPATITIS B SURFACE (test code=HBSAG) NONREACTIVE NONREACTIVE IS CONSENT FORM SIGNED FOR HIV TESTING? YAB HEPATITIS C [id number] 15:12: 00 Test Item Value Reference Range Comments AB HEPATITIS C (test code=HCVAB) NONREACTIVE SIGNAL TO CUTOFF (test code=CUTOFF) <0.80 IS CONSENT FORM SIGNED FOR HIV TESTING? YAB HIV 1 15:12:00 Test Item Value Reference Range Comments AB HIV 1 2 (test code=FYH55GX) NONREACTIVE IS CONSENT FORM SIGNED FOR HIV TESTING? YPROTHROMBIN [id number] 15:03:00 Test Item Value Reference Range Comments PROTHROMBIN TIME PATIENT (test code=PTP) 11.2 secs 10.4-12.4 THROMBOPLASTIN TIME [id number] 15:03:00 Test Item Value Reference Range Comments THROMBOPLASTIN TIME PARTIAL (test code=PTT) 33.6 secs 22-38 URINALYSIS [id number] 14:55:00 Test Item Value Reference Range Comments [...] NONE SEEN URINE SAMPLE: CLEAN CATCHCHEMISTRY 7 [id number] 14:46:00 Test Item Value Reference Range Comments [...] CALCIUM (test code=CA) 8.9 mg/dL 8.4-10.2 LIVER [id number] 14:46:00 Test Item Value Reference Range Comments TOTAL PROTEIN (test code=PROT) 7.8 gm/dL 6.3-8.2 ALBUMIN (test code=ALB) 4.1 gm/dL 3.4-4.8 BILIRUBIN TOTAL (test code=BILT) 0.6 mg/dL 0.2-1.0 BILIRUBIN DIRECT (test code=BILD) 0.1 mg/dL <0.2 SGOT/AST (test code=AST) 55 units/L 15-37 SGPT/ALT (test code=ALT) 84 units/L 12-78 ALKALINE PHOSPHATASE TOTAL (test code=ALKP) 90 units/L 46-116 CBC W/AUTO [id number] 14:27:00 Test Item Value Reference Range Comments [...] code=PLTMR) NORMAL NORMAL - XR CHEST 2 [id number] 13:43:00 Patient Name: TETO CAMPOS Unit No: [id number] EXAMS: CPT CODE: [id number] XR CHEST 2 V 41386 CLINICAL HISTORY: PRE OP COMPARISON: NONE PA [...] MD Technologist: RT Jonny Trnscrbd D / ([id number]) Jackie Felton D/T: S: 11/2018 ([id number]) [facility] NAME [facility] PHYS: CLARISSE Sunil sIabel MD [address] : 1980 AGE: 39 SEX: F [place], [place] [address] LOC: [place] PHONE #: [phone] EXAM DATE: 02/10/2019 STATUS: PRE IN FAX #: [phone] RAD NO: [id number] Page 1 Signed ChampKIN,NOT CYST/TAG/DEBRID/[id number] 13:28:00 RUN DATE: 10/11/18 [facility] PAGE 1 RUN TIME: 1700 Specimen Inquiry RUN USER: INTERFACE PATIENT : TETO CAMPOS LOC: [facility] U #: [id number] AGE/SX: 38/F ROOM: RE10/10/18EMIL DR: Sunil Isabel MD : [birth year] BED: DIS: STATUS: [facility] TLOC: SPEC #: [id number] RECD: 10/10/18 STATUS: EARNESTINE HELM #: [id number] REI: 10/10/18 - [facility] DR: Sunil Isabel MD ENTERED: 10/10/18 SP TYPE : SKINOTCTDP SAUL DR: ORDERED: LEVEL IV CODES: [id number] - SKIN, NOS PROCEDURES: LEVEL IV (Incomplete) TISSUES: SKIN, NOS - UMBILICAL KELOID SKIN SCAR CLINICAL HISTORY 38 year old, endometriosis (wpd) FINAL DIAGNOSIS Designated "umbilical keloid skin scar", excision: - skin with dermal fibrosis (scar ) Tissue code 1 CPT code(s): 24488 papig/kr dt: 10/11/18 GROSS DESCRIPTION ANATOMIC SOURCE OF [...] 1328 END OF REPORT AG HEPATITIS B [id number] 15:45:00 Test Item Value Reference Range Comments AG HEPATITIS B SURFACE (test code=HBSAG) NONREACTIVE NONREACTIVE Comments to Seaming Machine Operator: PRE-OPIS CONSENT FORM SIGNED FOR HIV TESTING? YAB HEPATITIS C [id number] 15:45:00 Test Item Value Reference Range Comments AB HEPATITIS C (test code=HCVAB) NONREACTIVE NONREACTIVE SIGNAL TO CUTOFF (test code=CUTOFF) 0.04 <0.80 Comments to Seaming Machine Operator: PRE-OPIS CONSENT FORM SIGNED FOR HIV TESTING? YAB HIV 1 15:45:00 Test Item Value Reference Range Comments AB HIV 1 2 (test NONREACTIVE NONREACTIVE Done by [employer] 4th code=DUZ11SI) Gen HIV Ag/Ab Combo Screen Comments to Seaming Machine Operator: PRE-OPIS CONSENT FORM SIGNED FOR HIV TESTING? YCHEMISTRY 7 [id number] 14:50:00 Test Item Value Reference Range Comments [...] CALCIUM (test code=CA) 9.3 mg/dL 8.4-10.2 LIVER [id number] 14:50:00 Test Item Value Reference Range Comments TOTAL PROTEIN (test code=PROT) 7.9 gm/dL 6.3-8.2 ALBUMIN (test code=ALB) 4.0 gm/dL 3.4-4.8 BILIRUBIN TOTAL (test code=BILT) 0.6 mg/dL 0.2-1.0 BILIRUBIN DIRECT (test code=BILD) 0.1 mg/dL <0.2 SGOT/AST (test code=AST) 20 units/L 15-37 SGPT/ALT (test code=ALT) 36 units/L 12-78 ALKALINE PHOSPHATASE TOTAL (test code=ALKP) 77 units/L 46-116 HCG SERUM [id number] 14:50:00 Test Item Value Reference Range Comments HCG SERUM QUAL (test code=HCGQL) NEGATIVE CHEMISTRY 7 [id number] 14:33:00 Test Item Value Reference Range Comments SODIUM (test code=NA) mEq/L 135-145 POTASSIUM (test code=K) mEq/L 3.5-5.0 CHLORIDE (test code=CL) mEq/L 100-115 CARBON DIOXIDE (test code=CO2) mEq/L 22-31 ANION GAP (test code=GAP) 10-20 GLUCOSE (test code=GLU) mg/dL 65-110 BLOOD UREA NITROGEN (test code=BUN) mg/dL 7-18 CREATININE (test code=CREAT) mg/dL 0.5-1.0 CALCIUM (test code=CA) mg/dL 8.4-10.2 LIVER [id number] 14:33:00 Test Item Value Reference Range Comments TOTAL PROTEIN (test code=PROT) gm/dL 6.3-8.2 ALBUMIN (test code=ALB) gm/dL 3.4-4.8 BILIRUBIN TOTAL (test code=BILT) mg/dL 0.2-1.0 BILIRUBIN DIRECT (test code=BILD) mg/dL <0.2 SGOT/AST (test code=AST) units/L 15-37 SGPT/ALT (test code=ALT) units/L 12-78 ALKALINE PHOSPHATASE TOTAL (test code=ALKP) units/L 46-116 HCG SERUM [id number] 14:33:00 Test Item Value Reference Range Comments HCG SERUM QUAL (test code=HCGQL) NEGATIVE PROTHROMBIN [id number] 14:31:00 Test Item Value Reference Range Comments PROTHROMBIN TIME PATIENT (test code=PTP) 11.4 secs 10.4-12.4 Comments to Seaming Machine Operator: PRE-OPTHROMBOPLASTIN TIME [id number] 14:31:00 Test Item Value Reference Range Comments THROMBOPLASTIN TIME PARTIAL (test code=PTT) 33.2 secs 22-38 Comments to Seaming Machine Operator: PRE-OPURINALYSIS [id number] 14:17:00 Test Item Value Reference Range Comments [...] code=MUCU) RARE NONE SEEN URINE SAMPLE: CLEAN CATCHC W/AUTO [id number] 13:56:00 Test Item Value Reference Range Comments [...]
--- NOTE | 2019-08-06 11:07 | ER ---
Nurse's Notes [facility] Name: Ann Buckley Age: 39 yrs Sex: Female : 1980 Arrival Date: 08/06/2019 Time: 09:42 Bed 13 Private MD: Arias Murillo Diagnosis: Pain in right arm Presentation: 08/06 10:01 Presenting complaint: Patient states: pain in right arm since yesterday afternoon, pain iw started in hand and now has moved into her shoulder, denies injury, pt also feels pressure in her hand. Transition of care: patient was not received from another setting of care. Onset of symptoms was August 04, 2019. Risk Assessment: Do you want to hurt yourself or someone else? Patient reports no desire to harm self or others. Initial Sepsis Screen: Does the patient meet any 2 criteria? No. Patient's initial sepsis screen is negative. Does the patient have a suspected source of infection? No. Patient's initial sepsis screen is negative. Care prior to arrival: None. 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 - Coronavirus screen:: The patient has NOT traveled to [place], [place], or [place] in the past 14 days. Proceed with normal triage process as indicated. - Social history:: Smoking status: Patient denies any tobacco usage or history of. - Ebola Screening: : Patient negative for fever greater than or equal to 101.5 degrees Fahrenheit, and additional compatible Ebola Virus Disease symptoms Patient denies exposure to infectious person Patient denies travel to an Ebola-affected area in the 21 days before illness onset No symptoms or risks identified at this time. Screenin:30 Abuse screen: Denies threats or abuse. Denies injuries from another. Nutritional jl7 screening: No deficits noted. Tuberculosis screening: No symptoms or risk factors identified. Fall Risk None identified. Assessment: 10:30 General: Appears in no apparent distress. uncomfortable, Behavior is calm, cooperative, jl7 appropriate for age. Pain: Complains of pain in right hand Pain currently is 5 out of 10 on a pain scale. Neuro: Level of Consciousness is awake, alert, obeys commands, Oriented to person, place, time, situation. Cardiovascular: Patient's skin is warm and dry. Respiratory: Airway is patent Respiratory effort is even, unlabored, Respiratory pattern is regular, symmetrical. Derm: Skin is pink, warm \T\ dry. Musculoskeletal: Swelling absent. 11:15 Reassessment: Patient appears in no apparent distress at this time. Patient is alert, ca1 oriented x 3, equal unlabored respirations, skin warm/dry/pink. Vital Signs: 10:04 BP 148 / 95; Pulse 74; Resp 16; Temp 98.7; Pulse Ox 100% on R/A; Weight 81.19 kg; iw Height 5 ft. 2 in. (157.48 cm); Pain 5/10; 11:15 BP 134 / 94; Pulse 81; Resp 16 S; Pulse Ox 100% on R/A; ca1 10:04 Body Mass Index 32.74 (81.19 kg, 157.48 cm) iw ED Course: 09:42 Patient arrived in ED. as 09:42 Arias Murillo MD is Private Physician. as 10:03 Triage completed. iw 10:04 Arm band placed on. iw 10:05 Karla Coleman, DAHIANA is Primary Nurse. jl7 10:17 Paz Grimaldo FNP-C is PHCP. kb 10:17 Loi Salazar MD is Attending Physician. kb 10:30 Patient has correct armband on for positive identification. Placed in gown. Bed in low jl7 position. Call light in reach. Side rails up X 1. 10:52 Primary Nurse role handed off by Karla Coleman RN ca1 10:52 Dominique Engel RN is Primary Nurse. ca1 10:54 UPPER EXTREMITY VENOUS UNILATE In Process Unspecified. EDMS 11:15 No provider procedures requiring assistance completed. Patient did not have IV access ca1 during this emergency room visit. Sling applied to right arm. Administered Medications: No medications were administered Outcome: 11:06 Discharge ordered by . kb 11:27 Discharged to home ambulatory, with significant other. ca1 11:27 Condition: stable 11:27 Discharge instructions given to patient, Instructed on discharge instructions, follow up and referral plans. medication usage, Demonstrated understanding of instructions, follow-up care, medications, Prescriptions given X 1. 11:28 Patient left the ED. ca1 Signatures: Dispatcher [employer] EDMS Paz Grimaldo, ADVERTISING OPERATIONS COORDINATOR-C ADVERTISING OPERATIONS COORDINATOR-Yumiko Whiting Irene, RN RN iw Karla Coleman RN RN jl7 Dominique Engel RN RN ca1
--- NOTE | 2019-08-06 11:07 | EDPHYS ---
Physician Documentation [facility] Name: Ann Buckley Age: 39 yrs Sex: Female : 1980 Arrival Date: 08/06/2019 Time: 09:42 Bed 13 Private MD: Arias Murillo ED Physician Loi Salazar HPI: 08/06 10:57 This 39 yrs old Female presents to ER via Ambulatory with complaints of Arm kb Pain. 10:57 The patient or guardian complains of pain, that is acute, tenderness. The complaints kb affect the right forearm. Context: The problem was sustained at home, resulted from unknown cause. Onset: The symptoms/episode began/occurred yesterday. Treatment prior to arrival includes: no previous treatment. Modifying factors: The symptoms are alleviated by nothing. the symptoms are aggravated by movement. Associated signs and symptoms: Pertinent positives: pain. Severity of symptoms: At their worst the symptoms were moderate, in the emergency department the symptoms are unchanged. The patient has not experienced similar symptoms in the past. The patient has not recently seen a physician. 11:04 Pt reports pain to right forearm that started yesterday and is now radiating up arm. kb States she came to make sure it wasn't a blood clot because she was on an estrogen patch. . 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 - Coronavirus screen:: The patient has NOT traveled to [place], [place], or [place] in the past 14 days. Proceed with normal triage process as indicated. - Social history:: Smoking status: Patient denies any tobacco usage or history of. - Ebola Screening: : Patient negative for fever greater than or equal to 101.5 degrees Fahrenheit, and additional compatible Ebola Virus Disease symptoms Patient denies exposure to infectious person Patient denies travel to an Ebola-affected area in the 21 days before illness onset No symptoms or risks identified at this time. ROS: 11:05 Constitutional: Negative for fever, chills, and weight loss, Neck: Negative for injury, kb pain, and swelling, Cardiovascular: Negative for chest pain, palpitations, and edema, Respiratory: Negative for shortness of breath, cough, wheezing, and pleuritic chest pain, Abdomen/GI: Negative for abdominal pain, nausea, vomiting, diarrhea, and constipation, Back: Negative for injury and pain, Skin: Negative for injury, rash, and discoloration, Neuro: Negative for headache, weakness, numbness, tingling, and seizure. 11:05 MS/extremity: Positive for decreased range of motion, pain, tenderness, of the right forearm. Exam: 11:05 Constitutional: This is a well developed, well nourished patient who is awake, alert, kb and in no acute distress. Head/Face: Normocephalic, atraumatic. Neck: Trachea midline, no thyromegaly or masses palpated, and no cervical lymphadenopathy. Supple, full range of motion without nuchal rigidity, or vertebral point tenderness. No Meningismus. Chest/axilla: Normal chest wall appearance and motion. Nontender with no deformity. No lesions are appreciated. Cardiovascular: Regular rate and rhythm with a normal S1 and S2. No gallops, murmurs, or rubs. Normal PMI, no JVD. No pulse deficits. Respiratory: Lungs have equal breath sounds bilaterally, clear to auscultation and percussion. No rales, rhonchi or wheezes noted. No increased work of breathing, no retractions or nasal flaring. Abdomen/GI: Soft, non-tender, with normal bowel sounds. No distension or tympany. No guarding or rebound. No evidence of tenderness throughout. Skin: Warm, dry with normal turgor. Normal color with no rashes, no lesions, and no evidence of cellulitis. Neuro: Awake and alert, GCS 15, oriented to person, place, time, and situation. Cranial nerves II-XII grossly intact. Motor strength 5/5 in all extremities. Sensory grossly intact. Cerebellar exam normal. Normal gait. 11:05 Musculoskeletal/extremity: Extremities: grossly normal except: noted in the right forearm: decreased ROM, pain, tenderness, ROM: limited active range of motion due to pain, in the right forearm, Circulation is intact in all extremities. Sensation intact. Vital Signs: 10:04 BP 148 / 95; Pulse 74; Resp 16; Temp 98.7; Pulse Ox 100% on R/A; Weight 81.19 kg; iw Height 5 ft. 2 in. (157.48 cm); Pain 5/10; 11:15 BP 134 / 94; Pulse 81; Resp 16 S; Pulse Ox 100% on R/A; ca1 10:04 Body Mass Index 32.74 (81.19 kg, 157.48 cm) iw MDM: 10:17 Patient medically screened. kb 10:57 Data reviewed: vital signs, nurses notes. Data interpreted: Pulse oximetry: on room air kb is 100 %. Interpretation: normal. Counseling: I had a detailed discussion with the patient and/or guardian regarding: the historical points, exam findings, and any diagnostic results supporting the discharge/admit diagnosis, radiology results, the need for outpatient follow up, a family practitioner, to return to the emergency department if symptoms worsen or persist or if there are any questions or concerns that arise at home. 08/06 10:36 Order name: UPPER EXTREMITY VENOUS UNILATE; Complete Time: 11:13 EDWY 08/06 11:08 Order name: Sling; Complete Time: 11:26 kb Administered Medications: No medications were administered Disposition: 17:04 Co-signature as Attending Physician, Loi Salazar MD I agree with the assessment and [facility] plan of care. Disposition: 08/06/19 11:06 Discharged to Home. Impression: Pain in right arm. - Condition is Stable. - Discharge Instructions: Musculoskeletal Pain. - Prescriptions for Diclofenac Sodium 75 mg Oral Tablet, Delayed Release (E.C.) - take 1 tablet by ORAL route 2 times per day As needed; 30 tablet. - Medication Reconciliation Form, Thank You Letter, Antibiotic Education, Prescription Opioid Use form. - Follow up: Emergency Department; When: As needed; Reason: Worsening of condition. Follow up: Private Physician; When: 2 - 3 days; Reason: Recheck today's complaints, Continuance of care, Re-evaluation by your physician. Signatures: Dispatcher [employer] Paz Zapata FNP-C FNP-Ckb Anderson, Corey, MD MD cha Williams, Irene RN RN iw oTro, DAHIANA Fox RN ca1 Corrections: (The following items were deleted from the chart) 11:28 11:06 08/06/2019 11:06 Discharged to Home. Impression: Pain in right arm. Condition is ca1 Stable. Forms are Medication Reconciliation Form, Thank You Letter, Antibiotic Education, Prescription Opioid Use. Follow up: Emergency Department; When: As needed; Reason: Worsening of condition. Follow up: Private Physician; When: 2 - 3 days; Reason: Recheck today's complaints, Continuance of care, Re-evaluation by your physician. kb
--- NOTE | 2019-08-06 11:10 | RAD REPORT ---
EXAM DESCRIPTION: US - UPPER EXTREMITY VENOUS UNILATE - 08/06/2019 10:54 am CLINICAL HISTORY: Right upper extremity pain COMPARISON: None. FINDINGS: The right internal jugular, subclavian, brachial, axillary, cephalic, basilic, radial and ulnar veins demonstrate phasic signal. The veins are generally compressible. Doppler demonstrates good flow IMPRESSION: No evidence of thrombus involving the right upper extremity
[2019-08-06 11:47] VITALS: TEMP 98.7; O2SAT 100
[2019-08-06 11:48] VITALS: BP 134/94
== END 2019-08-06 11:28 | disposition home or self-care (01) ==
LOC: ER 09:39
DX: M79.631 Pain in right forearm (principal)
CPT/HCPCS: 93971; 99283